=== PATIENT | female | born 1990 | race African-American/Black ===

== ENCOUNTER → 2017-02-26 | Outpatient (CLI) | payer OTHER ==
[2017-02-26 12:05] LABS: HEMATOCRIT 33.6 % (36.0-47.0); HEMOGLOBIN 11.4 g/dL (12.0-15.5); HGB HCT DIFFERENCE 0.6; MEAN CORPUSCULAR HGB CONC 33.8 g/dL (32.0-36.0); MEAN CORPUSCULAR VOLUME 80 fl (80-97); RED BLOOD COUNT 4.21 10^6/uL (3.72-5.28); RED CELL DISTRIBUTION WIDTH 14.4 % (11.5-14.0); WHITE BLOOD COUNT 6.6 10^3/uL (4.0-10.5)
[2017-02-26 12:26] LABS: ALANINE AMINOTRANSFERASE 22 U/L (9-52); ALBUMIN 4.4 g/dL (3.5-5.0); ALKALINE PHOSPHATASE 55 U/L (38-126); ANION GAP 14 (5-19); ASPARTATE AMINO TRANSFERASE 18 U/L (14-36); BILIRUBIN,DIRECT 0.2 mg/dL (0.0-0.4); BILIRUBIN,TOTAL 0.4 mg/dL (0.2-1.3); BLOOD UREA NITROGEN 12 mg/dL (7-20); CALCIUM 9.8 mg/dL (8.4-10.2); CARBON DIOXIDE 26 mmol/L (22-30); CHLORIDE 104 mmol/L (98-107); CHOLESTEROL 160.02 mg/dL (0-200); Direct HDL 59 mg/dL (>40); GLUCOSE 88 mg/dL (75-110); POTASSIUM 4.4 mmol/L (3.6-5.0); SODIUM 144.4 mmol/L (137-145); TOTAL PROTEIN 7.5 g/dL (6.3-8.2); TRIGLYCERIDES 38 mg/dL (<150)
[2017-02-26 12:39] LABS: DIRECT LDL 77 mg/dL (<100)
[2017-02-26 12:44] LABS: CREATINE KINASE MB < 0.22 ng/mL (<4.55); TROPONIN I < 0.012 ng/mL
--- NOTE | 2017-02-26 21:59 | EKG REPORT ---
SEVERITY:- NORMAL ECG - SINUS RHYTHM : Confirmed by: Jerica Tsai 26-Feb-2017 21:59:40
== END ==
LOC: LAB 11:33
PROVIDERS: ATTEND Nurse Practitioner Primary Care
DX: R07.9 Chest pain, unspecified (principal); Z13.9 Encounter for screening, unspecified; E66.9 Obesity, unspecified
CPT/HCPCS: 36415; 80053; 80061; 82306; 82553; 83036; 84443; 84484; 85027; 93005; 93010

== ENCOUNTER 2019-01-13 09:18 | Emergency (ER) | payer MEDICAID, OTHER ==
[2019-01-13 09:31] VITALS: BP 125/67
[2019-01-13] MEDS ORDERED: CEFTRIAXONE INJ 250 MG VIAL IM ONE (09:53)
[2019-01-13] MEDS ORDERED: AZITHROMYCIN 250 MG TABLET PO ONE (09:53)
--- NOTE | 2019-01-13 09:57 | ER Document Report ---
ED General - General Chief Complaint: Vaginal Discharge Stated Complaint: STD CHECK Time Seen by Provider: 01/13/19 09:36 Primary Care Provider: ADINA ALEMAN NP [NURSE PRACTITIONER] - Follow up in 1 week Mode of Arrival: Ambulatory Information source: Patient Notes: Patient presents to the emergency department with request for STD and HIV check. Patient reports she had unprotected sex a couple weeks ago. She reports that she is now experienced some white cloudy discharge. She denies odor. She denies vaginal itching. She denies pain with void. Patient also requesting HIV checked because she has been checked in a while. Patient reports that she does not think the person she had sex with has HIV but she has not been checked so she wants to be checked. She denies symptoms such as fever vomiting diarrhea. She reports a little bit of a cough. TRAVEL OUTSIDE OF THE [place] IN LAST 30 DAYS: No - Related Data Allergies/Adverse Reactions: No Known Allergies Allergy (Unverified 03/28/13 21:24) Past Medical History - General Information source: Patient Last Menstrual Period: iud - Social History Smoking Status: Unknown if Ever Smoked Cigarette use (# per day): No Frequency of alcohol use: None Drug Abuse: None Family History: Reviewed & Not Pertinent Patient has suicidal ideation: No Patient has homicidal ideation: No Renal/ Medical History: Reports: Other - GC/CHLA, Trich, BV Past Surgical History: Reports: Hx Section - x2 - Immunizations Immunizations up to date: No Review of Systems - Review of Systems Notes: Review HPI for review of systems., All other systems negative Physical Exam - Vital signs Vitals: Temp Pulse Resp BP Pulse Ox 98.8 F 98 18 125/67 100 01/13/19 09:28 01/13/19 09:28 01/13/19 09:28 01/13/19 09:28 01/13/19 09:28 - Notes Notes: PHYSICAL EXAMINATION: GENERAL: Well-appearing and in no acute distress HEAD: Atraumatic, normocephalic. EYES: extraocular movements intact, sclera anicteric, conjunctiva are normal. ENT: nares patent, oropharynx clear without exudates. Moist mucous membranes. NECK: Normal range of motion, supple without lymphadenopathy LUNGS: CTAB and equal. No wheezes rales or rhonchi. HEART: Regular rate and rhythm without murmurs ABDOMEN: Soft, no tenderness. No guarding, no rebound EXTREMITIES: Normal range of motion, no pitting edema. No cyanosis. NEUROLOGICAL: Cranial nerves grossly intact. Normal sensory/motor exams. PSYCH: Normal mood, normal affect. SKIN: Warm, Dry, normal turgor, no rashes or lesions noted - Genitourinary External exam: Normal Speculum exam: Normal, Vaginal discharge - SMALL AMOUNT OF WHITE DISCHARGE, NO ODOR Vaginal bleeding: None Bimanuel exam: Normal Course - Re-evaluation Re-evalutation: 01/13/19 10:04 I spoke at length about HIV testing with the patient. We discussed reason to suspect HIV. We discussed that HIV test is not just a one-time test. Patient also requesting oral swabs for a STD because she had oral sex. She is not having any kind of symptoms no sore throat no swelling airway patent. We discussed oral STD testing also. Patient reports that she went to the health department but they had a long wait so she came here. She reports that she has Medicaid but she is in the middle of transition. Patient is requesting to be treated for the STDs and be contacted later with results. I explained to her that trichomonas and BV might come back very shortly but she requests to leave and come back for the prescriptions. 01/13/19 13:33 Trichomonas and BV noted on culture. pt contacted with results, pt requested Flagyl be called into [facility]. Flagyl 500 mg p.o. twice daily for 7 days called into [facility] [place] telephone #[phone] Dictation of this chart was performed using voice recognition software; therefore, there may be some unintended grammatical errors. - Vital Signs Vital signs: Temp Pulse Resp BP Pulse Ox 98.8 F 98 18 125/67 100 01/13/19 09:28 01/13/19 09:28 01/13/19 09:28 01/13/19 09:28 01/13/19 09:28 Procedures - Pelvic Exam Pelvic exam Cultures obtained: Yes Wet prep obtained: Yes Herpes culture obtained: No POC sent to lab: No Foreign body removed: No Bimanual exam performed: Yes Witnessed by: CHINYERE HUTCHINS [facility] Discharge - Discharge Clinical Impression: std check Condition: Stable Disposition: HOME, SELF-CARE Instructions: Azithromycin ([facility]), Chlamydia ([facility]), Gonorrhea ([facility]), H.I.V. Information ([facility]), [facility], [facility] Additional Instructions: *You have been evaluated for vaginal discharge, STD exposure *You have been given medication to cover gonorrhea and chlamydia, you will be contacted if you need further antibiotics *Follow up with your CUST[employer]ER ENGAGEMENT SPECIALIST or the health department for recheck within one week *Follow up with the health department for HIV testing as indicated *Avoid sexual intercourse until follow up *Return to ED for worsening condition, changes, needs Referrals: ADINA ALEMAN NP [NURSE PRACTITIONER] - Follow up in 1 week
[2019-01-13] MEDS ORDERED: LIDOCAINE 1% INJ-PF (10 MG/ML) 30 ML SDV ONE (10:08)
[2019-01-13 10:27] LABS: T.VAGINALIS (WET MOUNT) TRICHOMONAS SEEN
[2019-01-13 10:28] LABS: BACTERIA (WET MOUNT) 4+ BACTERIA SEEN; RBCS (WET MOUNT) RARE RBCS SEEN; WBCS (WET MOUNT) FEW WBCS SEEN; YEAST (WET MOUNT) NO YEAST SEEN
[2019-01-13 11:58] LABS: CHLAM PCR NOT DETECTED (NOT DETECT); GON PCR NOT DETECTED (NOT DETECT)
== END 2019-01-13 10:45 | disposition home or self-care (01) ==
LOC: ER 09:18
DX: A59.9 Trichomoniasis, unspecified (principal); N76.0 Acute vaginitis; B96.89 Other specified bacterial agents as the cause of diseases classified elsewhere; R05 Cough
CPT/HCPCS: 99283; 96372; 87210; 87491; 87591; Q0144; J3490; J0696

== ENCOUNTER → 2019-09-15 | Outpatient (CLI) | payer MEDICAID ==
[2019-09-15 11:38] LABS: ABSOLUTE BASOPHILS # (AUTO) 0.1 10^3/uL (0.0-0.2); ABSOLUTE EOSINOPHILS # (AUTO) 0.1 10^3/uL (0.0-0.6); ABSOLUTE LYMPHOCYTES (AUTO) 1.5 10^3/uL (0.5-4.7); ABSOLUTE MONOCYTES (AUTO) 0.4 10^3/uL (0.1-1.4); ABSOLUTE NEUT (AUTO) 3.9 10^3/uL (1.7-8.2); BASOPHILS % (AUTO) 1.1 % (0-2); EOSINOPHILS % (AUTO) 2.2 % (0-6); HEMATOCRIT 36.8 % (36.0-47.0); LYMPHOCYTES % (AUTO) 25.2 % (13-45); MEAN CORPUSCULAR HEMOGLOBIN 25.9 pg (27.0-33.4); MEAN CORPUSCULAR HGB CONC 32.7 g/dL (32.0-36.0); MEAN CORPUSCULAR VOLUME 79 fl (80-97); MONOCYTES % (AUTO) 5.9 % (3-13); PLATELET COUNT 371 10^3/uL (150-450); RED BLOOD COUNT 4.65 10^6/uL (3.72-5.28); RED CELL DISTRIBUTION WIDTH 14.6 % (11.5-14.0); SEGMENTED NEUTROPHILS % (AUTO) 65.6 % (42-78); TOTAL CELLS COUNTED % (AUTO) 100 %
[2019-09-15 11:51] LABS: ALBUMIN 4.8 g/dL (3.5-5.0); ALKALINE PHOSPHATASE 60 U/L (38-126); ANION GAP 10 (5-19); ASPARTATE AMINO TRANSFERASE 20 U/L (14-36); BILIRUBIN,DIRECT 0.1 mg/dL (0.0-0.4); BILIRUBIN,TOTAL 0.4 mg/dL (0.2-1.3); BLOOD UREA NITROGEN 13 mg/dL (7-20); CALCIUM 9.8 mg/dL (8.4-10.2); CARBON DIOXIDE 26 mmol/L (22-30); CHLORIDE 105 mmol/L (98-107); GLUCOSE 98 mg/dL (75-110); POTASSIUM 4.4 mmol/L (3.6-5.0); TOTAL PROTEIN 8.2 g/dL (6.3-8.2)
== END ==
LOC: OD 10:35
PROVIDERS: ATTEND Nurse Practitioner Acute Care
DX: R07.9 Chest pain, unspecified (principal)
CPT/HCPCS: 36415; 80053; 84436; 84443; 84480; 85025; 86480

== ENCOUNTER → 2019-09-28 | Outpatient (CLI) | payer MEDICAID ==
[2019-09-29 10:55] LABS: RUBEOLA IGG AB >300.0 AU/mL (Immune >16); VARICELLA ZOSTER IGG AB 1163 index (Immune >16)
== END ==
LOC: OD 07:55
PROVIDERS: ATTEND Nurse Practitioner Acute Care
DX: Z00.00 Encounter for general adult medical examination without abnormal findings (principal)
CPT/HCPCS: 36415; 86317; 86735; 86762; 86765; 86787